=== PATIENT | female | born 1955 | race Caucasian/White ===

== ENCOUNTER 2022-10-25 11:40 | Emergency (ER) | payer MEDICARE, OTHER ==
[~2022-10-25] VITALS: Ht 162.6 cm; Wt 86.4 kg
[~2022-10-25 11:40] MED LIST: CITA20TA28 PO; HYDR-4383 PO; LOSA100T57 PO
[2022-10-25 11:57] VITALS: BP 190/105
--- NOTE | 2022-10-25 15:18 | NUR ---
SLIGHT BRUISING NOTED OVER LEFT BREAST AND CENTER OF CHEST. LUNGS CLEAR AND EQUAL. PT REPORTS PAIN WITH DEEP INSPIRATION.
[2022-10-25] MEDS ORDERED: HYDROcodone/acetaminophen 10/325mg tab PO ONE (17:30)
[2022-10-25] MEDS ORDERED: HYDR-3972 PO (17:56)
== END 2022-10-25 18:12 | disposition home or self-care (01) ==
LOC: ER 11:41
DX: S22.31XA Fracture of one rib, right side, initial encounter for closed fracture (principal); R07.89 Other chest pain; R05.9 Cough, unspecified; I10 Essential (primary) hypertension; F32.A Depression, unspecified; Z91.040 Latex allergy status; Z79.899 Other long term (current) drug therapy; V88.9XXA Person injured in other specified (collision)(noncollision) transport accidents involving nonmotor vehicle, nontraffic, initial encounter; Y93.89 Activity, other specified; Y92.89 Other specified places as the place of occurrence of the external cause; Y99.8 Other external cause status
CPT/HCPCS: 71045; 99283

== ENCOUNTER 2024-11-23 13:01 | Outpatient (CLI) | payer MEDICARE, OTHER ==
[~2024-11-23 13:01] MED LIST changes: +ANAS1TAB24 PO; +ATOR40TA72 PO; -HYDR-4383 PO; +HYDR12.55 PO; -LOSA100T57 PO; +LOSA100T58 PO
== END 2024-11-23 23:59 | disposition home or self-care (01) ==
LOC: VAS 13:01
PROVIDERS: ATTEND Surgery
DX: R60.0 Localized edema (principal)
CPT/HCPCS: 93971

== ENCOUNTER 2025-08-20 08:52 | Emergency (ER) | payer MEDICARE, OTHER ==
[~2025-08-20] VITALS: Ht 160 cm; Wt 40.9 kg
[~2025-08-20 08:52] MED LIST changes: +CITA-178 PO; -CITA20TA28 PO
[2025-08-20 08:54] VITALS: TEMP 97.6
[2025-08-20 09:25] LABS: MEAN PLATELET VOLUME 8.5 FL (7.4-10.4); RED CELL DISTRIBUTION WIDTH 14.6 % (11.5-14.5)
--- NOTE | 2025-08-20 09:44 | ELECTROCARDIOGRAPH REPORT ---
[facility] Test Date: 2025-08-20 Test Time: 09:41:30 Pat Name: MELISSA KERNS [facility]- [id number] Room: Gender: F [employer] Cutter: : 1955 Requested By: NGA HAGEN Order Number: [id number] Reading MD: Measurements Intervals Shell Rate: 88 P: 57 IA: 156 QRS: -7 QRSD: 92 T: 60 QT: 405 QTc: 490 Interpretive Statements Sinus rhythm Left ventricular hypertrophy Borderline prolonged QT interval Baseline wander in lead(s) V2 Please click the below link to view image of tracing.
[2025-08-20 09:47] LABS: CREATININE 0.76 MG/DL (0.40-0.90); PRO BRAIN NATRIURETIC PEPTIDE 337 PG/ML (0-125); TOTAL CARBON DIOXIDE 26.0 MMOL/L (24-32); eCRCL 44 ML/MIN; eGFR 75 ML/MIN
--- NOTE | 2025-08-20 09:54 | Physician Documentation ---
Addendum CHIEF COMPLAINT/HPI: The patient is a 69-year-old female who presents with wheezing and shortness of breath. She had an episode similar to this about two years ago. She thinks she might be allergic to something but does not know what. Her regular medications are lisinopril and citalopram. She has no recent new exposures that she is aware of. She has taken some loratadine over the counter with no significant improvement. REVIEW OF SYSTEMS: Constitutional: Denies chills, fatigue, fever, weight gain or weight loss. HEENT: Denies hearing loss, sinus pressure or visual changes. Respiratory: Shortness of breath and wheezing. Cardiovascular: Denies chest pain, pain while walking (claudication), edema or palpitations. Gastrointestinal: Denies abdominal pain, blood in stool, constipation, diarrhea, heartburn, loss of appetite, nausea or vomiting. Genitourinary: Denies painful urination (dysuria), excessive amount of urine (polyuria) or urinary frequency. Metabolic/Endocrine: Denies cold intolerance, heat intolerance, excessive thirst (polydipsia) or excessive hunger (polyphagia). Neurological: Denies dizziness, extremity numbness, extremity weakness, headaches, seizures or tremors. Psychiatric: Denies anxiety or depression. Integumentary: Denies breast discharge, breast lump, hives, mole change(s), rash or skin lesion. Musculoskeletal: Denies back pain, joint pain, joint swelling or neck pain. Hematologic: Denies easily bleeding, easily bruises, lymphedema or issues with blood clots. Immunologic: Denies food allergies or seasonal allergies. PHYSICAL EXAMINATION: Vitals and nursing note reviewed. Constitutional: General: Patient is awake, alert, oriented x 4 in no acute distress and well appearing. Speech is clear and lucid. Appearance: Normal appearance. Patient is not ill-appearing, toxic-appearing or diaphoretic. HENT: Head: Normocephalic and atraumatic. Mouth/Throat: Mouth: Mucous membranes are moist. Pharynx: Oropharynx is clear. Eyes: General: No scleral icterus. Extraocular Movements: Extraocular movements intact. Pupils: Pupils are equal, round, and reactive to light. Neck: Supple, no Kernig or Brudzinski sign. Cardiovascular: Rate and Rhythm: Normal rate and regular rhythm. Heart sounds: No murmur heard. Pulmonary: Effort: No respiratory distress. Breath sounds: Bilateral expiratory wheezes. No retractions. Abdominal: General: There is no distension. Palpations: There is no fluid wave, hepatomegaly or mass. Tenderness: There is no abdominal tenderness. There is no guarding. Musculoskeletal: General: No swelling or deformity. Skin: Coloration: Skin is not jaundiced. Findings: No erythema or rash. Neurological: Mental Status: Patient is alert. MEDICAL DECISION MAKING: I am starting the patient with a DuoNeb and prednisone 40 mg p.o. Patient's troponin came back elevated and sequential troponin rising. I am starting her on aspirin and will get her admitted. Departure Disposition: ADMITTED INPATIENT Admitted to Inpatient Unit: to hospitalist Impression: Primary Impression: NSTEMI (non-ST elevated myocardial infarction) Condition: Stable NGA HAGEN MD Aug 20, 2025 09:54
[2025-08-20 10:26] VITALS: PULSE 78; RESP 18; O2SAT 98
[2025-08-20] MEDS: ipratropium/albuterol 3ml nebule NEB STA (10:26)
[2025-08-20 10:35] VITALS: PULSE 83; RESP 18; O2SAT 100
--- NOTE | 2025-08-20 10:40 | RADIOLOGY REPORT ---
EXAM: DI CHEST,SINGLE VIEW Indication: CP Technique: Single frontal view of the chest was obtained Comparison: CHEST,SINGLE VIEW on DOS: 10/25/22 FINDINGS: Lines and Tubes: None Lungs: No focal consolidation. Pleura: No effusion. No pneumothorax. Cardiomediastinal contours: Unremarkable Bones: No acute osseous abnormality. IMPRESSION: No acute cardiopulmonary disease.
[2025-08-20 10:51] LABS: INFLUENZA TYPE A ANTIGEN RAPID NEGATIVE (Negative); INFLUENZA TYPE B ANTIGEN RAPID NEGATIVE (Negative)
[2025-08-20 12:00] VITALS: BP 148/96; PULSE 88; RESP 16; O2SAT 98
== END 2025-08-20 13:15 | disposition left against medical advice (07) ==
LOC: ER 08:53
DX: I21.4 Non-ST elevation (NSTEMI) myocardial infarction (principal); Z20.822 Contact with and (suspected) exposure to COVID-19
CPT/HCPCS: 36415; 71045; 80048; 83880; 84484; 85025; 87804; 87811; 93005; 94640; 99285; J7512; 94760